=== PATIENT | male | born 1995 | race Caucasian/White ===

== ENCOUNTER 2016-03-03 16:37 | Emergency (ER) | payer BC ==
[2016-03-03] MEDS ORDERED: OPTIRAY 350 100 ML VIAL HMH IV ONE (16:38)
[2016-03-04] MEDS ORDERED: ONDANSETRON 4 MG VIAL ONE (01:06)
[2016-03-04] MEDS ORDERED: SODIUM CHLORIDE 0.9% 1,000 ML ONE (01:06)
== END 2016-03-04 03:15 | disposition home or self-care (01) ==
LOC: ER 16:37
DX: I88.0 Nonspecific mesenteric lymphadenitis (principal)
CPT/HCPCS: 74177; 96361; 96374